=== PATIENT | female | born 1935 | race Caucasian/White ===

== ENCOUNTER 2019-06-07 13:13 | Emergency (ER) | payer MEDICARE, BC ==
[2019-06-07] MEDS ORDERED: NITROGLYCERIN 0.4MG SL TABLET #25 BTL SL ONE (13:17)
[2019-06-07] MEDS: NITROGLYCERIN 0.4MG SL TABLET #25 BTL SL PRN ×3 (13:23→13:39)
[2019-06-07 13:29] LABS: ABSOLUTE NEUTROPHIL COUNT 5.46; BASO % 0.2 % (0-6); GRAN % 67.2 % (47-80); HEMATOCRIT 43.2 % (35.0-47.0); HEMOGLOBIN 14.2 gm/dl (11.6-16.0); LYMPH % 23.9 % (16-45); MEAN CELL VOLUME 91.7 fl (81-97); MEAN CORPUSCULAR HEMOGLOBIN 30.1 pg (27-33); MEAN CORPUSCULAR HGB CONC 32.9 g/dl (32-36); MEAN PLATELET VOLUME 9.8 fl (7.4-10.4); MONO % 7.7 % (0-9); PLATELET COUNT 309 K/uL (130-400); RED BLOOD COUNT 4.71 M/uL (3.80-5.40); RED CELL DISTRIBUTION WIDTH 13.8 % (11.5-14.5); WHITE BLOOD COUNT W/O DIFF 8.1 K/uL (4.2-12.2)
--- NOTE | 2019-06-07 13:37 | Emergency Department Record ---
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 the pain is in her l chest and radiates to nausea.nher l arm. she has nausea. she has never had anything like this before MD Complaint: Chest pain Onset/Timin -: Minutes(s) Pain Radiation: LUE Severity scale (1-10): 10 Quality: Aching, Heaviness, Tightness Consistency: Constant Improves With: Nothing Worsens With: Nothing Treatments Prior to Arrival: Aspirin Treatment Prior to Arrival Comment:: 325 and 81mg. - Related Data Home Medications Medication Instructions Recorded Confirmed Last Taken Aspirin [Aspir-Low] 81 mg PO DAILY 06/07/19 06/07/19 06/07/19 Allergies Allergy/AdvReac Type Severity Reaction Status Date / Time No Known Drug Allergies Allergy Verified 06/07/19 13:30 Travel Screening - Travel/Exposure Within Last 30 Days Have you traveled within the last 30 days?: No - Travel/Exposure Within Last Year Have you traveled outside the [place] in the last year?: No - Additonal Travel Details Have you been exposed to anyone with a communicable illness?: No Review of Systems Reviewed: No additional complaints except as noted below Constitutional: Reports: As per HPI. Denies: Chills, Fever, Malaise, Night sweats, Weakness, Weight change Eyes: Reports: As per HPI. Denies: Eye discharge, Eye pain, Photophobia, Vision change ENT: Reports: As per HPI. Denies: Congestion, Dental pain, Ear pain, Epistaxis, Hearing loss, Throat pain Respiratory: Reports: As per HPI. Denies: Cough, Dyspnea, Hemoptysis, Stridor, Wheezes Cardiovascular: Reports: As per HPI, Chest pain. Denies: Arrhythmia, Dyspnea on exertion, Edema, Murmurs, Orthopnea, Palpitations, Paroxysmal nocturnal dyspnea, Rheumatic Fever, Syncope Endocrine: Reports: As per HPI. Denies: Fatigue, Heat or cold intolerance, Polydipsia, Polyuria Gastrointestinal: Reports: As per HPI, Nausea. Denies: Abdominal pain, Constipation, Diarrhea, Hematemesis, Hematochezia, Melena, Vomiting Genitourinary: Reports: As per HPI. Denies: Abnormal menses, Discharge, Dyspareunia, Dysuria, Frequency, Hematuria, Incontinence, Retention, Urgency Musculoskeletal: Reports: As per HPI. Denies: Arthralgia, Back pain, Gout, Joint swelling, Myalgia, Neck pain Skin: Reports: As per HPI. Denies: Bruising, Change in color, Change in hair/nails, Lesions, Pruritus, Rash Neurological: Reports: As per HPI. Denies: Abnormal gait, Confusion, Headache, Numbness, Paresthesias, Seizure, Tingling, Tremors, Vertigo, Weakness Psychiatric: Reports: As per HPI. Denies: Anxiety, Auditory hallucinations, Depression, Homicidal thoughts, Suicidal thoughts, Visual hallucinations Hematological/Lymphatic: Reports: As per HPI. Denies: Anemia, Blood Clots, Easy bleeding, Easy bruising, Swollen glands Past Medical History - SOCIAL HISTORY Smoking Status: Never smoker Alcohol Use: None Drug Use: None - RESPIRATORY Hx Respiratory Disorders: No - CARDIOVASCULAR Hx Cardio Disorders: Yes Hx Hypertension: Yes - NEURO Hx Neuro Disorders: No - GI Hx GI Disorders: No - Hx Genitourinary Disorders: No - ENDOCRINE Hx Endocrine Disorders: Yes Hx Thyroid Disease: Yes - MUSCULOSKELETAL Hx Musculoskeletal Disorders: Yes - PSYCH Hx Psych Problems: No - HEMATOLOGY/ONCOLOGY Hx Hematology/Oncology Disorders: No Family Medical History Any Significant Family History?: No Physical Exam - General General Appearance: Alert, Oriented x3, Cooperative, Mild distress - Head Head exam: Normal inspection - Eye Eye exam: Normal appearance, PERRL, EOMI Pupils: Normal accommodation - ENT ENT exam: Normal exam, Mucous membranes moist, Normal external ear exam, Normal orophraynx Ear exam: Normal external inspection. negative: External canal tenderness Nasal Exam: Normal inspection. negative: Discharge, Sinus tenderness Mouth exam: Normal external inspection, Tongue normal Teeth exam: Normal inspection. negative: Dental caries Throat exam: Normal inspection. negative: Tonsillar erythema, Tonsillar exudate - Neck Neck exam: Normal inspection, Full ROM. negative: Tenderness - Respiratory Respiratory exam: Normal lung sounds bilaterally. negative: Respiratory distress - Cardiovascular Cardiovascular Exam: Regular rate, Normal rhythm, Normal heart sounds - GI/Abdominal GI/Abdominal exam: Soft, Normal bowel sounds. negative: Tenderness - Rectal Rectal exam: Deferred - exam: Deferred - Extremities Extremities exam: Normal inspection, Full ROM, Normal capillary refill. negative: Tenderness - Back Back exam: Reports: Normal inspection, Full ROM. Denies: Muscle spasm, Rash noted, Tenderness - Neurological Neurological exam: Alert, CN II-XII intact, Normal gait, Oriented X3 - Psychiatric Psychiatric exam: Normal affect, Normal mood - Skin Skin exam: Dry, Intact, Normal color, Warm Course Vital Signs 06/07/19 13:20 Pulse Rate [ 52 L Pulse Ox Probe] Respiratory 18 Rate Blood Pressure 172/94 [Right Arm] Pulse Ox 89 L - Reevaluation(s) Reevaluation #1: 06/07/19 13:48 pt d/w dr au who accepted pt Reevaluation #2: 06/07/19 13:49 pts pain down to 8/ Reevaluation #3: 06/07/19 14:06 pts cp is better but she still hs arm pain 10/10 and jaw pain Reevaluation #4: 06/07/19 14:07 dr au wants pt to be admitted to hospitalist Medical Decision Making - Lab Data Result diagrams: 06/07/19 13:20 06/07/19 13:20 Disposition Disposition: Transfer Clinical Impression: Acute AR Qualifiers: Myocardial infarction type: unspecified Involved coronary artery: unspecified coronary artery Qualified Code(s): I21.9 - Acute myocardial infarction, unspecified Disposition: Acute Care Hospital Transfer Transfer To: 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
[2019-06-07 13:41] LABS: BLOOD UREA NITROGEN 15 mg/dL (8-23); CREATININE 0.9 mg/dL (0.5-0.9); EST GLOMERULAR FILTRATION RATE > 60 mL/min
[2019-06-07 13:44] LABS: GLUCOSE,RANDOM 157 mg/dL (74-109)
[2019-06-07] MEDS ORDERED: HEPARIN SODIUM 1000 UNIT/1 ML 10ML VIAL IVP ONE (13:46)
[2019-06-07 13:47] LABS: CREATINE PHOSPHOKINASE 82 U/L (26-192)
[2019-06-07 13:49] LABS: CKMB 1.6 ng/mL (<3.77)
[2019-06-07] MEDS ORDERED: NITROGLYCERIN/D5W 50 MG/250 ML ML IV SCH (14:00)
--- NOTE | 2019-06-07 14:11 | RADIOLOGY REPORT ---
EXAMINATION: Single View Chest EXAM DATE: 06/07/2019 1:47 PM TECHNIQUE: Single view chest INDICATION: cp COMPARISON: None. ENCOUNTER: Not applicable FINDINGS: The heart, mediastinum, and pulmonary vasculature are normal. No lung consolidation or pleural effu sions are present. No pneumothorax is present. IMPRESSION: No acute cardiopulmonary abnormality. Dictated by: Ye Atkinson MD on 06/07/2019 2:08 PM. .
[2019-06-07] MEDS ORDERED: ONDANSETRON HCL IV 4 MG/2 ML VIAL IVP ONE (14:21)
[2019-06-07] MEDS ORDERED: MORPHINE SULFATE 5 MG/ML VIAL IVP ONE (14:21)
[2019-06-07] MEDS ORDERED: HEPARIN SODIUM/D5W 25,000 UNITS/500 ML BAG IV SCH (14:45)
== END 2019-06-07 14:57 | disposition short-term general hospital (02) ==
LOC: ER 13:13
DX: I21.9 Acute myocardial infarction, unspecified (principal); R11.0 Nausea
CPT/HCPCS: 71045; 80048; 82550; 82553; 83880; 84484; 85025; 85379; 85730; 93005; 93010; 96374; 96375; 96376; 99285; J2405